=== PATIENT | female | born 1975 | race Native Hawaiian/Other Pacific Islander ===

== ENCOUNTER 2016-08-24 12:19 | Emergency (ER) | payer OTHER ==
[~2016-08-24] VITALS: Ht 160 cm; Wt 117.9 kg
[2016-08-24 12:30] VITALS: TEMP 98.4
[2016-08-24 13:06] LABS: PLATELET COUNT 254 K/uL (152-353)
[2016-08-24 13:34] LABS: POTASSIUM 3.8 mmol/L (3.6-5.2); SODIUM 138 mmol/L (136-145)
[2016-08-24 14:01] VITALS: BP 122/67
== END 2016-08-24 14:35 | disposition home or self-care (01) ==
LOC: ED 12:19
DX: R07.89 Other chest pain (principal); K21.9 Gastro-esophageal reflux disease without esophagitis
CPT/HCPCS: 36415; 80053; 82550; 84484; 85027; 86318; 93005; 99284

== ENCOUNTER 2017-04-02 13:59 | Outpatient (CLI) | payer OTHER | END 2017-04-02 19:25 | disposition home or self-care (01) | LOC: RAD 13:59 | DX: R59.0 Localized enlarged lymph nodes (principal) ==

== ENCOUNTER 2017-04-05 17:05 | Observation (INO) | payer OTHER ==
[~2017-04-05] VITALS: Ht 160 cm; Wt 117.1 kg
[2017-04-05 20:27] LABS: PLATELET COUNT 297 K/uL (152-353)
[2017-04-05 20:52] LABS: POTASSIUM 3.1 mmol/L (3.6-5.2); SODIUM 133 mmol/L (136-145)
[2017-04-06 01:56] VITALS: BP 118/79; TEMP 98.9; Ht 160 cm; Wt 117.1 kg
--- NOTE | 2017-04-06 02:19 | NUR ---
04/05/171929 A/O SITTING UP IN BED NO C/O PAIN AT THIS TIME.FAMILY PRESENT IN ROOM CALL LIGHT WITHIN REACH.CC
[2017-04-06 03:03] LABS: PLATELET COUNT 261 K/uL (152-353)
[2017-04-06 03:41] LABS: POTASSIUM 3.4 mmol/L (3.6-5.2); SODIUM 134 mmol/L (136-145)
[2017-04-06] MEDS ORDERED: LORA0.5T17 PO (03:42)
[2017-04-06] MEDS ORDERED: PROZAC10 MG PO (03:43)
[2017-04-06 03:53] VITALS: BP 104/63; TEMP 99.1
[2017-04-06] MEDS ORDERED: AMBIEN5 MG PO (04:57)
[2017-04-06] MEDS ORDERED: MICROZIDE12.5 MG OR (04:59)
[2017-04-06] MEDS ORDERED: BUDE1AER5 INH (05:01)
[2017-04-06 08:00] VITALS: BP 127/68; TEMP 97.9
[2017-04-06 11:39] VITALS: BP 115/65; TEMP 98.6
--- NOTE | 2017-04-06 17:16 | NUR ---
IV D/C'd. NO REDNESS OR EDEMA OBSERVED. DISCHARGED INSTRUCTION SIGNED AND GIVEN. Pt. EXIT OUT OF FRONT EXIT AMBULATING.
== END 2017-04-06 17:16 | disposition home or self-care (01) ==
LOC: MED/SURG 17:05
PROVIDERS: ADMIT Family Medicine
DX: R07.89 Other chest pain (principal); J20.9 Acute bronchitis, unspecified; J32.9 Chronic sinusitis, unspecified; M25.50 Pain in unspecified joint; G89.29 Other chronic pain
CPT/HCPCS: 36415; 80053; 82550; 83735; 84484; 85027; 87040; 93005; 94640; 94664; 94760; 99220; G0378; G0379; J0456; J0696; J1885

== ENCOUNTER 2017-04-14 12:41 | Outpatient (CLI) | payer OTHER ==
[~2017-04-14 12:41] MED LIST: AMBIEN5 MG PO; BUDE1AER5 INH; LORA0.5T17 PO; MICROZIDE12.5 MG OR; PROZAC10 MG PO
== END 2017-04-14 19:36 | disposition home or self-care (01) ==
LOC: MAMMO 12:41
DX: N60.02 Solitary cyst of left breast (principal)

== ENCOUNTER 2017-04-26 08:24 | Outpatient (CLI) | payer OTHER | END 2017-04-26 19:12 | disposition home or self-care (01) | LOC: MRI 08:24 | DX: M54.17 Radiculopathy, lumbosacral region (principal) ==

== ENCOUNTER 2017-08-26 13:01 | Outpatient (CLI) | payer OTHER | END 2017-08-26 19:34 | disposition home or self-care (01) | LOC: CT 13:01 | DX: R10.84 Generalized abdominal pain (principal); K57.10 Diverticulosis of small intestine without perforation or abscess without bleeding | CPT/HCPCS: Q9963 ==

== ENCOUNTER 2017-10-27 10:56 | Outpatient (CLI) | payer OTHER | END 2017-10-27 19:27 | disposition home or self-care (01) | LOC: US 10:56 | DX: N60.02 Solitary cyst of left breast (principal) ==

== ENCOUNTER 2017-10-27 11:04 | Day surgery (SDC) | payer OTHER ==
[~2017-10-27] VITALS: Ht 167.6 cm; Wt 90.7 kg
[2017-10-27 12:24] LABS: PLATELET COUNT 271 K/uL (152-353)
[2017-10-27 13:05] LABS: POTASSIUM 3.3 mmol/L (3.6-5.2)
== END 2017-10-27 16:22 | disposition home or self-care (01) ==
LOC: OR 11:04
PROVIDERS: Internal Medicine Gastroenterology
PROC: 0DBE8ZZ Excision of Large Intestine, Via Natural or Artificial Opening Endoscopic (ICD-10-PCS; principal; 2017-10-27)
DX: K57.30 Diverticulosis of large intestine without perforation or abscess without bleeding (principal); K63.3 Ulcer of intestine; K64.8 Other hemorrhoids; R19.4 Change in bowel habit; R19.7 Diarrhea, unspecified; R10.32 Left lower quadrant pain
CPT/HCPCS: 80053; 85027; 87324; 87449; J2001; J2250; J2704; J3010

== ENCOUNTER 2018-09-07 16:12 | Outpatient (CLI) | payer BC | END 2018-09-07 20:17 | disposition home or self-care (01) | LOC: RAD 16:12 | DX: M25.512 Pain in left shoulder (principal); M54.2 Cervicalgia ==